=== PATIENT | female | born 1965 ===

== ENCOUNTER 2023-03-25 11:31 | Outpatient (REF) | payer MEDICAID, SELFPAY | END 2023-03-25 11:32 | disposition home or self-care (01) | LOC: HO.HHCLNP 11:31 | PROVIDERS: Visit Provider Emergency Medicine | DX: K21.9 Gastro-esophageal reflux disease without esophagitis (principal) | CPT/HCPCS: 87338 ==

== ENCOUNTER 2023-05-14 10:40 | Outpatient (REF) | payer MEDICAID, SELFPAY ==
--- NOTE | ~2023-05-14 | XR_ITS ---
EXAMINATION: XR WRIST, LEFT CLINICAL INFORMATION: Left wrist pain radial. Patient states she has had pain for 2 years. COMPARISON: None available. TECHNIQUE: 5 views of the left wrist. FINDINGS: Advanced, destructive changes at the 1st carpometacarpal joint with joint space loss, abundant hypertrophic change and sclerosis with possible destructive ossific fragmentation. There is lateral subluxation of the 1st metacarpal. Moderate degenerative changes with spurring along the distal aspect of the trapezium. XR/XR wrist LT min 3V IMPRESSION: Severe, destructive changes at the 1st carpometacarpal joint as detailed above. Correlation with clinical exam recommended to determine further management. Orthopedic consultation and possible CT scan or MRI recommended for further evaluation.
[2023-05-14 14:16] LABS: TSH reflex Free T4 1.82 uIU/mL (0.32-4.0)
[2023-05-14 14:25] LABS: Anion Gap 13 (12-20)
[2023-05-14 14:30] LABS: Alanine Aminotransferase 17 U/L (0-31); Albumin Level 4.7 g/dL (3.5-5.0); Alkaline Phosphatase 102 U/L (39-117); Aspartate Amino Transferase 21 U/L (5-31); Bilirubin Total 0.5 mg/dL (0.0-1.0); Blood Urea Nitrogen 14 mg/dL (9-16); Calcium 10.2 mg/dL (8.4-10.2); Carbon Dioxide 25 mmol/L (22-29); Chloride 103 mmol/L (96-108); Estimated Glomerular Filt Rate > 60; Glucose Random 89 mg/dL (60-115); Potassium 4.1 mmol/L (3.3-5.1); Sodium 137 mmol/L (135-145); Total Protein 7.9 g/dL (6.5-8.0)
[2023-05-14 14:35] LABS: Cholesterol 245 mg/dL (<200); HDL Cholesterol 49 mg/dL (>40); LDL Cholesterol Calculated 155 mg/dL (<100); Triglycerides 208 mg/dL (<150)
[2023-05-14 14:39] LABS: Estimated Average Glucose 105 mg/dL; Hemoglobin A1c % 5.3 % (<6.0)
[2023-05-14 14:50] LABS: Reflex LDLD? No
[2023-05-15 07:38] LABS: Syphilis Screen Nonreactive (Nonreactive)
[2023-05-15 08:18] LABS: HBS Num1 0.47 mIU/mL (0-7.99); HBc Num1 0.08 S/CO (0.00-0.79); HBsAGNum1 0.34 S/CO (0.00-0.99); HIV AB/AG Nonreactive (Nonreactive); HIV Num 1 0.13 S/CO (0.00-0.99); Hepatitis B Core Antibody Nonreactive (Nonreactive); Hepatitis B Surface Antigen Negative (Negative); ~HepC Num1 11.99 S/CO (0.00-0.79); ~Hepatitis B Surface Antibody NONREACTIVE (Nonreactive); ~Hepatitis C Antibody Reactive (Nonreactive)
[2023-05-18 17:13] LABS: HCV Log PCR <1.18 NOT DETECTED Log IU/mL (NOT DETECTED); HepC Viral Load <15 NOT DETECTED IU/mL (NOT DETECTED)
== END 2023-05-14 10:41 | disposition home or self-care (01) ==
LOC: HO.HHCL 10:40
PROVIDERS: Visit Provider Family Medicine
DX: Z00.00 Encounter for general adult medical examination without abnormal findings (principal); E03.9 Hypothyroidism, unspecified; I10 Essential (primary) hypertension
CPT/HCPCS: 36415; 73110; 80053; 80061; 83036; 84443; 86704; 86706; 86780; 86803; 87340; 87389; 87522

== ENCOUNTER 2023-05-22 11:15 | Outpatient (REF) | payer MEDICAID, SELFPAY ==
--- NOTE | ~2023-05-22 | MM_ITS ---
EXAMINATION: MM SCREENING DIGITAL BREAST TOMOSYNTHESIS, BILATERAL CLINICAL INFORMATION: Screening. Asymptomatic. COMPARISON: Mammography: There are no prior studies for comparison. This is a baseline mammogram. TECHNIQUE: Digital breast tomosynthesis is performed in both the craniocaudal and mediolateral oblique views along with computer-aided detection (CAD). Synthesized 2D images are generated from the tomosynthesis. FINDINGS: There are scattered areas of fibroglandular density (ACR BI-RADS breast composition Category b). There are no significant masses, abnormal calcifications, or other abnormalities. MM/MM tomosynthesis screening BI IMPRESSION: No mammographic evidence of malignancy. ASSESSMENT: BI-RADS BI-RADS 1 - Negative RECOMMENDATION: Routine annual mammography screening. 1 year F/U This examination should not preclude the clinical evaluation of a suspicious palpable abnormality. This patient's information was entered into a reminder system with a target due date for their next mammogram.
== END 2023-05-22 11:16 | disposition home or self-care (01) ==
LOC: HO.MAMMO 11:15
PROVIDERS: PCP Family Medicine; Visit Provider Family Medicine
DX: Z12.31 Encounter for screening mammogram for malignant neoplasm of breast (principal)
CPT/HCPCS: 77063; 77067

== ENCOUNTER → 2023-05-22 12:45 | Outpatient (BNV) | payer MEDICAID, SELFPAY | PROVIDERS: PCP Family Medicine; Visit Provider Radiology Diagnostic Radiology | DX: Z12.31 Encounter for screening mammogram for malignant neoplasm of breast (principal) | CPT/HCPCS: 77063; 77067 ==

== ENCOUNTER 2023-07-03 11:00 | Outpatient (RCR) | payer MEDICAID, SELFPAY | END 2023-08-03 07:28 | disposition home or self-care (01) | LOC: HO.PT 11:00 | PROVIDERS: PCP Family Medicine; Visit Provider Family Medicine | DX: M54.2 Cervicalgia (principal); M79.605 Pain in left leg; M25.552 Pain in left hip; G89.29 Other chronic pain | CPT/HCPCS: 97110; 97140; 97162; 97530 ==

== ENCOUNTER 2023-08-28 09:12 | Outpatient (REF) | payer MEDICAID, SELFPAY ==
--- NOTE | ~2023-08-28 | US_ITS ---
EXAMINATION: US ABDOMEN COMPLETE CLINICAL INFORMATION: Hepatic lesions on ultrasound in October 2022. COMPARISON: None available. TECHNIQUE: Real-time imaging of the abdominal viscera. FINDINGS: PANCREAS: Mostly obscured. ABDOMINAL AORTA: Atherosclerosis. INFERIOR VENA CAVA: Visualized portions are normal. LIVER: The liver is normal in size. The liver contour is normal. There is diffuse increased liver parenchymal echogenicity, consistent with hepatic steatosis. No focal hepatic lesion. There is no intrahepatic biliary duct dilatation seen. GALLBLADDER: Surgically absent. COMMON BILE DUCT: Normal in caliber measuring 0.5 cm in diameter. RIGHT KIDNEY: No hydronephrosis. No renal calculi or focal parenchymal lesions. The kidney measures 10.1 cm in maximum dimension. LEFT KIDNEY: No hydronephrosis or focal parenchymal lesions. The kidney measures 9.9 cm in maximum dimension. Nonshadowing curvilinear echogenic foci in the lower pole possibly vascular in etiology. SPLEEN: The spleen measures 9.2 cm in maximum dimension. FREE FLUID: None. US/US abdomen complete IMPRESSION: Hepatic steatosis.
== END 2023-08-28 09:13 | disposition home or self-care (01) ==
LOC: HO.US 09:12
PROVIDERS: PCP Family Medicine; Visit Provider Family Medicine
DX: K76.9 Liver disease, unspecified (principal); R76.8 Other specified abnormal immunological findings in serum
CPT/HCPCS: 76700

== ENCOUNTER 2023-09-22 16:37 | Outpatient (REF) | payer MEDICAID, SELFPAY | END 2023-09-22 16:38 | disposition home or self-care (01) | LOC: HO.HHCLNP 16:37 | PROVIDERS: Visit Provider Family Medicine | DX: R30.0 Dysuria (principal) | CPT/HCPCS: 87086 ==

== ENCOUNTER 2023-09-22 17:47 | Outpatient (REF) | payer MEDICAID, SELFPAY ==
--- NOTE | ~2023-09-22 | MR_ITS ---
EXAMINATION: MR WRIST WITHOUT CONTRAST, LEFT CLINICAL INFORMATION: Chronic left wrist pain and decreased range of motion following an injury over 10 years ago. Pain, swelling, numbness. COMPARISON: Left wrist radiographs dated 05/14/2023. TECHNIQUE: Multisequence MR imaging of the left wrist was obtained without contrast on a high-field strength scanner. FINDINGS: TRIANGULAR FIBROCARTILAGE: Heterogeneous degenerative intrasubstance signal without a measurable full-thickness tear. INTRINSIC LIGAMENTS: Intact. TENDONS/MEDIAN NERVE: Trace edema within the extensor carpi ulnaris tendon sheath, consistent with minimal tenosynovitis. No transverse tendon tear or tendon retraction. ARTICULAR CARTILAGE/BONE: Diffuse, full-thickness articular cartilage loss at the first carpal metacarpal joint with prominent bony remodeling and marginal osteophytes. Prominent degenerative cystic change extending into the base of the first metacarpal distally beyond the imaged field of view. There are multiple ossified loose bodies measuring up to 0.6 cm medially and 1.0 cm anterolaterally. Moderate joint effusion with synovitis. More [id number] osteoarthritis at the triscaphe joint. No acute fracture or dislocation. No concerning lytic or blastic osseous lesion. JOINT FLUID/SOFT TISSUES: Moderate first carpometacarpal joint effusion with synovitis. Trace distal radioulnar joint effusion. Synovial recess versus ganglion cyst volar to the ulnar styloid measuring up to 1.1 cm. MR/MR wrist LT wo con IMPRESSION: 1. Severe osteoarthritis at the first carpometacarpal joint with prominent bony remodeling and prominent degenerative cystic change extending into the base of the first metacarpal. Multiple ossified loose bodies measuring up to 1.0 cm. Moderate joint effusion with synovitis. More teec-pu-twpomrlh osteoarthritis at the triscaphe joint. 2. Degenerative intrasubstance signal within the triangular fibrocartilage complex without a measurable full-thickness tear. Trace distal radial ulnar joint effusion. 3. Minimal extensor carpi ulnaris tenosynovitis. No transverse tendon tear or tendon retraction. 4. Synovial recess versus ganglion cyst volar to the ulnar styloid measuring up to 1.1 cm.
== END 2023-09-22 17:48 | disposition home or self-care (01) ==
LOC: HO.MRI 17:47
PROVIDERS: PCP Family Medicine; Visit Provider Family Medicine
DX: M25.532 Pain in left wrist (principal)
CPT/HCPCS: 73221; 87086

== ENCOUNTER 2023-09-28 13:20 | Outpatient (AMB) | payer MEDICAID, SELFPAY ==
[2023-09-28 13:29] VITALS: BMI 23.3
--- NOTE | 2023-09-28 13:29 | A.OFFVIS_ITS ---
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 Patient reports her pain has been present for about 3 years after a fall in [place]. Her pain is located at her CMC and will radiate down her forearm as well as numbness and tingling. 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 MRI was obtained by her PCP. No other tx. 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 She states she has pain at her CMC which radiates down to her forearm. She finds difficulty making fist or gripping objects and frequently drop items. She also c/o numbness and tingling in her wrist. She was seen by her PCP who ordered an MRI of her left wrist. She has not had any previous treatment. She does not have a history of diabetes. PFSH Surgical History (Updated 09/28/23 @ 13:39 by CHERRI Yen) Hx of cholecystectomy Social History (Updated 09/28/23 @ 13:38 by CHERRI Yen) Patient Tobacco Use Status: Current everyday Tobacco user Current occupational status: unemployed Current occupation: right hand dominant Review of Systems Const All systems reviewed & are unremarkable except as noted in HPI and below Physical Exam Vital Signs: BMI result Body Mass Index 23.3 Const General: cooperative, healthy appearing, comfortable, no acute distress, well developed and alert Orientation/consciousness: patient oriented x3 HEENT Head: Yes normal to inspection, Yes normocephalic and Yes atraumatic Eyes General: appearance normal, both eyes and all related structures Resp Effort & Inspection: normal respiratory effort and able to speak in complete sentences Cardio Rate: regular rate Peripheral pulses: Peripheral pulses 2+ throughout GI Palpation (GI): Soft to palpation Skin Lesions: no lesions Rashes: no rashes Neuro General: patient oriented x3 Extrem Other: Left thumb: Pain at the base of the thumb along the CMC joint. Pain with CMC grind, they are able to make a full fist and fully extend. NVI. Left wrist: Normal to inspection. Tenderness over the carpal canal. Numbness and tingling over the median nerve distribution of the right hand. Able to make a full fist and fully extend all fingers. Positive Tinel's. Results Reviewed Results Reviewed: XR wrist LT min 3V 05/14/23 IMPRESSION: Severe, destructive changes at the 1st carpometacarpal joint as detailed above. Correlation with clinical exam recommended to determine further management. Orthopedic consultation and possible CT scan or MRI recommended for further evaluation. MR wrist LT wo con 09/22/23 IMPRESSION: 1. Severe osteoarthritis at the first carpometacarpal joint with prominent bony remodeling and prominent degenerative cystic change extending into the base of the first metacarpal. Multiple ossified loose bodies measuring up to 1.0 cm. Moderate joint effusion with synovitis. More iigb-eo-brnsjlod osteoarthritis at the triscaphe joint. 2. Degenerative intrasubstance signal within the triangular fibrocartilage complex without a measurable full-thickness tear. Trace distal radial ulnar joint effusion. 3. Minimal extensor carpi ulnaris tenosynovitis. No transverse tendon tear or tendon retraction. 4. Synovial recess versus ganglion cyst volar to the ulnar styloid measuring up to 1.1 cm. Assessment & Plan Assessment & Plan (1) Arthritis of carpometacarpal (CMC) joint of left thumb: Code(s): M18.12 - Unilateral primary osteoarthritis of first carpometacarpal joint, left hand Plan We discussed options today which included bracing, OT and steroid injection. They did consent to move forward with the left thumb injection, which was tolerated well. I recommended rest, ice and elevation and OTC anti- inflammatories PRN for discomfort. A nerve conduction study of the LUE was also ordered to further evaluate the etiology of her numbness. If symptoms persist or worsens over the next 6-8 weeks, patient will contact the office, otherwise follow-up once the study is complete. Orders: Orders NE nerve conduction velocity Today R20.0 - Anesthesia of skin, R20.2 - Paresthesia of skin NE electromyogram (EMG) Today R20.0 - Anesthesia of skin, R20.2 - Paresthesia of skin Patient Instructions: Scribed for Shannan Teran PA-C, by Sim Abhang, medical charge entry specialist, on 09/28/2023 at 1:45 PM MEKA. Shannan White PA-C, have personally reviewed and agree with mirella walsh information entered by the scribe. Coding Level of Care Code New Pt Level 3 (15873) Diagnoses Arthritis of carpometacarpal (CMC) joint of left thumb M18.12
== END 2023-09-28 15:02 | disposition home or self-care (01) ==
PROVIDERS: PCP Family Medicine; Visit Provider Physician Assistant
DX: M18.12 Unilateral primary osteoarthritis of first carpometacarpal joint, left hand (principal)
CPT/HCPCS: 99203

== ENCOUNTER → 2023-09-28 13:20 | Outpatient (BNVA) | payer MEDICAID, SELFPAY | PROVIDERS: PCP Family Medicine; Visit Provider Physician Assistant | DX: M18.12 Unilateral primary osteoarthritis of first carpometacarpal joint, left hand (principal) | CPT/HCPCS: 99212; J1020 ==

== ENCOUNTER 2023-10-28 13:07 | Outpatient (REF) | payer MEDICAID, SELFPAY ==
--- NOTE | 2023-10-28 13:11 | EMG_ITS ---
Chief complaint: Left hand pain and numbness Reason for referral: Evaluate for Carpal Tunnel Syndrome Referred by: Shannan HACKETT Procedure done: Left upper extremity NCS/EMG Precautions and/or limitations: None Slovenian speaking, seen with microbial specialist. The limb temperature was monitored continuously and remained between 32-36 degrees C during the performance of the NCS. Nerve Conduction Studies Anti Sensory Summary Table ?Stim Site NR Onset (ms) Norm Onset (ms) Peak (ms) Norm Peak (ms) O-P Amp (?V) Norm O-P Amp Site1 Site2 Delta-0 (ms) Dist (cm) Joshua (m/s) Norm Joshua (m/s) Left Median Anti Sensory (2nd Digit) Wrist ? 2.6 3.8 <3.6 8.6 >10 Wrist 2nd Digit 2.6 14.0 54 Left Ulnar Anti Sensory (5th Digit) Wrist ? 2.6 3.2 <3.7 17.6 >15.0 Wrist 5th Digit 2.6 14.0 54 Motor Summary Table ?Stim Site NR Onset (ms) Norm Onset (ms) O-P Amp (mV) Norm O-P Amp iAmp (mV) Amp (1st) (%) Site1 Site2 Delta-0 (ms) Dist (cm) Joshua (m/s) Norm Joshua (m/s) Left Median Motor (Abd Poll Brev) Wrist ? 3.6 <3.9 9.1 >4.5 10.1 100.0 Elbow Wrist 4.1 20.0 49 >45 Elbow ? 7.7 8.1 9.0 89.0 Left Ulnar Motor (Abd Dig Minimi) Wrist ? 2.7 <3.0 11.1 >5 12.6 100.0 B Elbow Wrist 3.2 18.5 58 >45 B Elbow ? 5.9 10.1 11.6 91.0 A Elbow B Elbow 1.5 10.0 67 >45 A Elbow ? 7.4 10.5 12.0 94.6 Comparison Summary Table ?Stim Site NR Peak (ms) Norm Peak (ms) P-T Amp (?V) Site1 Site2 Delta-P (ms) Norm Delta (ms) Left Median/Radial Dig I Comparison (Digit 1 - 10cm) Median ? 3.2 <2.9 27.9 Median Radial 0.7 Radial ? 2.5 <2.8 8.2 EMG ?Side Muscle Nerve Root Ins Act Fibs Psw Amp Dur Poly Recrt Int Pat Comment Left 1stDorInt Ulnar C8-T1 Nml Nml Nml Nml Nml 0 Nml Complete Left FlexCarRad Median C6-7 Nml Nml Nml Nml Nml 0 Nml Complete Left Biceps Musculocut C5-6 Nml Nml Nml Nml Nml 0 Nml Complete Left Triceps Radial C6-7-8 Nml Nml Nml Nml Nml 0 Nml Complete Left Deltoid Axillary C5-6 Nml Nml Nml Nml Nml 0 Nml Complete FINDINGS: Left median sensory nerve showed prolonged peak latency. Significant interlatency difference seen in left median and radial sensory nerves. All other nerves tested were within normal. Concentric needle EMG was performed in selected muscles of the left upper extremity. Study did not reveal signs of electric abnormalities as shown in the table below. IMPRESSION: 1. This is an abnormal study. 2. There is electrodiagnostic evidence for left mild median neuropathy at the wrist, consistent with carpal tunnel syndrome. 3. There is no electrodiagnostic evidence for ulnar neuropathy, brachial plexopathy, or cervical radiculopathy.] Thank you for your kind referral. Grace Lebron MD, BRIAN Board Certified, [place] Board [employer] and Rehabilitation (ABPMR) Board Certified, [place] Board of Electrodiagnostic Medicine (ABEM) [place] [id number] [facility]
== END 2023-10-28 13:08 | disposition home or self-care (01) ==
LOC: HO.NEURO 13:07
PROVIDERS: PCP Family Medicine; Visit Provider Physician Assistant
DX: R20.0 Anesthesia of skin (principal); R20.2 Paresthesia of skin
CPT/HCPCS: 95886; 95909

== ENCOUNTER → 2023-10-28 13:11 | Outpatient (BNV) | payer MEDICAID, SELFPAY | PROVIDERS: PCP Family Medicine; Visit Provider Physical Medicine & Rehabilitation | DX: G56.03 Carpal tunnel syndrome, bilateral upper limbs (principal); G56.12 Other lesions of median nerve, left upper limb | CPT/HCPCS: 95886; 95909 ==

== ENCOUNTER 2023-11-17 09:40 | Outpatient (AMB) | payer MEDICAID, SELFPAY ==
--- NOTE | 2023-11-17 10:16 | A.OFFVIS_ITS ---
Vital Signs 11/17/23 10:21 Height 5 ft 5 in Weight 140 lb BMI 23.3 Handedness Right Intake Visit Reasons: ov- discuss emg results Intake Note: Nilda is a 58 year old right hand dominant female who presents today for an EMG review of her left hand, due to complaints of left hand pain numbness and tingling. EMG was completed on 10/28/23. Patient would like to discuss surgical and non surgical treatments, if surgical treatment is necessary she would like to hold off until she returns from [place]. Allergies No Known Allergies Allergy (Verified 11/17/23 10:18) HPI HPI ov- discuss emg results: Details: Nilda is a 58 year old right hand dominant Belarusian speaking woman who presents for a NCS review of her left hand numbness. She was last seen by LEW Campbell on 09/28/23 and received a basal joint injection. She complains of numbness in the left thumb, index, and middle fingers. Symptoms intermittent, but daily, worse at night. She is seen today wearing a wrist brace. She is planning to move here from [place] soon, and does not want to consider surgery until she has returned sometime this summer. PFSH Surgical History Hx of cholecystectomy Social History Patient Tobacco Use Status: Current everyday Tobacco user Current occupational status: unemployed Current occupation: right hand dominant Review of Systems Const All systems reviewed & are unremarkable except as noted in HPI and below Physical Exam Vital Signs: BMI result Body Mass Index 23.3 Const General: cooperative, healthy appearing and no acute distress Orientation/consciousness: patient oriented x3 HEENT Head: Yes normocephalic and Yes atraumatic Eyes EOM: EOMs intact bilaterally Resp Effort & Inspection: normal respiratory effort and able to speak in complete sentences Cardio Jugular venous distension: no JVD Skin General skin exam: turgor normal Rashes: no rashes Neuro General: patient oriented x3 Extrem Other: Evaluation of Left Upper Extremity: The patient is alert, oriented, and in no acute distress Neuro: Median, Ulnar, Radial nerves motor and sensory intact and sensation is normal to the tips of all digits No thenar or intrinsic wasting Good APB muscle belly firing and good finger cross Vascular: Cap refill brisk ROM: She can make a fist and extend all her digits Skin: No lacerations or abrasions. General: No Ecchymosis. No Erythema or evidence of infection. Radiographs: Left Nerve Conduction Study: IMPRESSION: 1. This is an abnormal study. 2. There is electrodiagnostic evidence for left mild median neuropathy at the wrist, consistent with carpal tunnel syndrome. 3. There is no electrodiagnostic evidence for ulnar neuropathy, brachial plexopathy, or cervical radiculopathy.] Thank you for your kind referral. Grace Lebron MD, BRIAN 10/28/23 Psych Appearance: grossly normal Affect: normal affect Attitude: cooperative Assessment & Plan Assessment & Plan (1) Carpal tunnel syndrome of left wrist: Code(s): G56.02 - Carpal tunnel syndrome, left upper limb Category: Medical (2) Arthritis of carpometacarpal (CMC) joint of left thumb: Code(s): M18.12 - Unilateral primary osteoarthritis of first carpometacarpal joint, left hand Category: Medical Plan Assessment & Plan: 1. Left carpal tunnel syndrome, mild Symptoms intermittent, but daily, worse at night I educated her about this condition I discussed operative and non-operative treatment options The patient would like to proceed with surgery, when she returns from [place] I explained that she should discontinue her wrist splint during the day, and wear it during the night only The risks and benefits of operative treatment were discussed with the patient and the patient wishes to proceed with surgery. These risks include, but are not limited to risk of damage to blood vessels, nerves, tendons, infection, recurrence, incomplete relief of preoperative symptoms, persistent pain, possible need for further surgery and the risks associated with regional blocks and anesthesia. The plan is to take the patient to the operating room sometime in the next few months for the following procedures: 1. Left carpal tunnel release, under local All of the preoperative paperwork including the consent was reviewed today. All the patient's questions were answered. The patient understands that they will be contacted by our plastic surgery assistant soon to schedule this procedure. She is travelling to and from [place] over the next few months. She would like to have surgery no sooner than mid-January. She denies Diabetes, blood thinners, asthma, heart, lung, kidney issues 2. Left Basal joint arthritis, S/P injection Date of injection: 09/28/23 by Shannan I educated her about this condition This appears to have helped. I discussed activity modification, she should limit or avoid any heavy or repetitive pinching or gripping activities She can repeat her injection no sooner than 01/28/24. Scribed for Marleny Wolff MD by Evan Castillo, medical secretary receptionist, on 11/17/23 at 10:45 AM, EST. Coding Level of Care Code Est Pt Level 4 (07561) Diagnoses Carpal tunnel syndrome of left wrist G56.02 Arthritis of carpometacarpal (CMC) joint of left thumb M18.12
[2023-11-17 10:21] VITALS: BMI 23.3
== END 2023-11-17 11:00 | disposition home or self-care (01) ==
PROVIDERS: PCP Family Medicine; Visit Provider Orthopaedic Surgery
DX: G56.02 Carpal tunnel syndrome, left upper limb (principal); M18.12 Unilateral primary osteoarthritis of first carpometacarpal joint, left hand
CPT/HCPCS: 99214

== ENCOUNTER → 2023-11-17 09:40 | Outpatient (BNVA) | payer MEDICAID, SELFPAY | PROVIDERS: PCP Family Medicine; Visit Provider Orthopaedic Surgery | DX: G56.02 Carpal tunnel syndrome, left upper limb (principal); M18.12 Unilateral primary osteoarthritis of first carpometacarpal joint, left hand | CPT/HCPCS: 99212 ==

== ENCOUNTER 2024-02-29 10:18 | Day surgery (SDC) | payer MEDICAID, SELFPAY ==
[2024-02-29 11:20] VITALS: BP 138/79; PULSE 52; RESP 16; TEMP 36.1; O2SAT 99; BMI 24.5
--- NOTE | 2024-02-29 12:47 | P.OP_ITS ---
Operative Note Operative Note Date of Service: 02/29/24 Narrative: Preop diagnosis: 1. Left Carpal tunnel syndrome Postop diagnosis: same Procedure: 1. Left Carpal tunnel release Surgeon: Marleny Wolff MD Research Methods Instructor: None Anesthesia: local block using 1% lidocaine with epinephrine Findings: Thickened transverse carpal ligament. EBL: Less than 5 mL Specimens: None Complications: None Disposition: Brought to recovery room in stable condition Plan: Follow-up for 10-14 days for wound check and suture removal Indications: The patient is 58 years old, with left carpal tunnel syndrome that has been unresponsive to nonoperative management. The risks and benefits of operative treatment including but not limited to risk of damage to blood vessels, nerves, tendons, infection, persistent pain, persistent symptoms, or possible need for additional surgery were discussed with the patient and the patient wishes to proceed with surgery. Procedure: Once consent was obtained a local block was performed using a combination of 1% lidocaine with epinephrine. The patient was then brought back to the operating suite and placed on the operative table in supine position. The left upper extremity was prepped and draped in a standard surgical fashion. Once assured that we had a good block, a 2.0 cm longitudinal incision was made centered over the carpal tunnel. The incision was made through the skin to the subcutaneous tissues using a #15 blade. Dissection was made down to the level of the transverse carpal ligament with care being taken to protect the palmar cutaneous nerve. Once the transverse carpal ligament was clearly visualized, a longitudinal incision was made in the transverse carpal ligament 1st using a #15 blade, then using tenotomy scissors under direct visualization. Care was taken to look for and protect the motor branch of the median nerve when seen in this area. Once satisfied with our carpal tunnel release the wound was copiously irrigated with normal saline and hemostasis was obtained with a brief period of local pressure. The skin edges were reapproximated with some 5.0 nylon suture material and a sterile dressing was applied. The patient appears to have tolerated the procedure well and with no complicatio ns. All digits were well vascularized at the conclusion of the case.
--- NOTE | 2024-02-29 12:47 | MHC.SHP ---
Pre-Procedural Eval Section A - 24 Hr Update-Section A only Date of Service: 02/29/24 The patient is an INPATIENT: No Changes since office visit: No Cold of Flu in the past 2 weeks, No New Medical Problems, No Changes in Medication and No Patient answered all questions The patient has been examined within 24 hours of the surgical procedure. The History & Physical has been completed within 30 days and I have reviewed it.: Yes Section B - Complete if H&P > 30 days Chief Complaint: Carpal tunnel syndrome, left upper limb Allergies: Allergies Allergy/AdvReac Type Severity Reaction Status Date / Time No Known Allergies Allergy Verified 11/17/23 10:18 Exam Exam Comment: Left carpal tunnel syndrome Plan Diagnosis/Plan: Unchanged I have reviewed the history and physical and performed a pertinent physical examination on my patient. No changes have occurred unless specified. Time Spent With Patient Time: Total time managing care of this patient today ____ minutes.
[2024-02-29 14:28] VITALS: BP 132/76; PULSE 57; RESP 16; O2SAT 99
== END 2024-02-29 14:29 | disposition home or self-care (01) ==
PROVIDERS: PCP Family Medicine; Visit Provider Orthopaedic Surgery
PROC: (CPT 64721; principal; 2024-02-29 12:10)
DX: G56.02 Carpal tunnel syndrome, left upper limb (principal); M18.12 Unilateral primary osteoarthritis of first carpometacarpal joint, left hand; R20.0 Anesthesia of skin; R20.2 Paresthesia of skin; Z90.49 Acquired absence of other specified parts of digestive tract; F17.210 Nicotine dependence, cigarettes, uncomplicated; Z56.0 Unemployment, unspecified
CPT/HCPCS: 64721; J0171

== ENCOUNTER → 2024-02-29 10:18 | Outpatient (BNV) | payer MEDICAID, SELFPAY | PROVIDERS: PCP Family Medicine; Visit Provider Orthopaedic Surgery | DX: G56.02 Carpal tunnel syndrome, left upper limb (principal) | CPT/HCPCS: 64721 ==

== ENCOUNTER 2024-03-15 11:08 | Outpatient (AMB) | payer MEDICAID, SELFPAY ==
--- NOTE | 2024-03-15 11:19 | A.OFFVIS_ITS ---
Intake Visit Reasons: PO LT CTR 02/29/24 AR Intake Note: Nilda is a 58 yo right hand dominant female who presents today post- operatively s/p left CTR done 02/29/[address] Wolff. Patient reports she is doing well, she continues to have numbness and tingling around her incision. Stitches removed in office and steri strips applied. Allergies No Known Allergies Allergy (Verified 03/15/24 13:25) HPI HPI PO LT CTR 02/29/24 AR: Details: Patient is a 58-year-old female who presents for postoperative evaluation of left carpal tunnel release, DOS 02/29/2024. Patient reports she is doing well, and is not experiencing any numbness in the digits of the left hand at this time. However, the patient reports that she is experiencing some discomfort around the incision site. No edema, increasing erythema, drainage from the incision site noted. No other acute complaints or concerns at this time. PFSH Surgical History Hx of cholecystectomy Social History Patient Tobacco Use Status: Current everyday Tobacco user Current occupational status: unemployed Current occupation: right hand dominant Physical Exam Extrem Other: Patient is alert, oriented, and in no acute distress. Neuro: Normal sensation to all digits of the left hand at this time Vascular: Cap refill brisk Pain: Patient reports tenderness to palpation about the incision site of the volar left wrist No other tenderness to palpation or pain with range of motion noted ROM: Patient is able to make a closed fist without difficulty Skin: Well-healing incision site on the volar aspect of the left wrist No active drainage or evidence of infection at this time. General: No ecchymosis, erythema, or evidence of infection. Psych: Appears grossly normal Affect normal Attitude cooperative Assessment & Plan Assessment & Plan (1) Carpal tunnel syndrome of left wrist: Code(s): G56.02 - Carpal tunnel syndrome, left upper limb Category: Medical Plan 1. Left carpal tunnel syndrome status post carpal tunnel release DOS 02/29/2024 Patient is recovering well postoperatively Patient is educated about the typical recovery course Patient is encouraged to continue with [id number] exercises of the left lorenz d in order to prevent stiffness Patient is also educated that she should massage around the incision site in order to prevent the hypersensitivity reaction Patient is amenable to this plan No scheduled follow-up necessary, patient will follow-up p.r.n. with any acute concerns Coding Level of Care Code Global (86211) Diagnoses Carpal tunnel syndrome of left wrist G56.02
== END 2024-03-15 11:47 | disposition home or self-care (01) ==
PROVIDERS: PCP Family Medicine
DX: G56.02 Carpal tunnel syndrome, left upper limb (principal)
CPT/HCPCS: 99024

== ENCOUNTER → 2024-03-15 11:08 | Outpatient (BNVA) | payer MEDICAID, SELFPAY | PROVIDERS: PCP Family Medicine | DX: Z48.811 Encounter for surgical aftercare following surgery on the nervous system (principal) | CPT/HCPCS: 99212 ==

== ENCOUNTER 2024-07-13 14:59 | Outpatient (REF) | payer MEDICAID, SELFPAY ==
--- OUTSIDE RECORDS SUMMARY | 2024-07-13 15:37 | XMS_ITS | Continuity of Care Document ---
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 Name Role Phone Unavailable Unavailable Unavailable Allergies, Adverse Reactions, Alerts Substance Reaction Status Criticality No Known Allergies Active No Inform ation Medications Medication Instructions Dosage Effective Dates (start - stop) Status Comments levothyroxine 75 mcg tablet take 1 tablet by oral route every day 75 MCG - Active Palauan translation, please Tirosint 75 mcg capsule take 1 capsule by oral route every day 75 MCG - Active tizanidine 4 mg tablet take 1 tablet by oral route every 8 hours as needed not to exceed 3 doses in 24 hours - Active Palauan translation, please Zantac 300 mg tablet take 1 tablet by oral route every day at bedtime - Active Palauan translation, please Percocet 5 mg-325 mg tablet take 1 tablet by oral route every 6 hours as needed 1.00 tablet - Active Palauan translation, please diclofenac sodium 75 mg tablet,delayed release take 1 tablet by oral route 2 times every day 75 MG - Active Palauan translation, please betamethasone valerate 0.1 % topical cream apply by topical route every day a thin layer to the affected area(s) 0.00 - Active Palauan translation, please Fioricet 50 mg-300 mg-40 mg capsule take 1 - 2 capsule by oral route every 4 hours as needed not to exceed 6 capsules per 24hrs 1.00-2.00 capsule - Active Palauan translation, please dicyclomine 20 mg tablet take 1 tablet by oral route 4 times every day 20 MG - Active Palauan translation, please enalapril maleate 20 mg tablet take 1 tablet by oral route 2 times every day 20 MG - Active Palauan translation, please fluoxetine 40 mg capsule take 1 capsule by oral route every day in the morning 40 MG - Active omeprazole 40 mg capsule,delayed release take 1 capsule by oral route every day before a meal 40 MG - Active Palauan translation, please Zofran ODT 4 mg disintegrating tablet take 1 tablet by oral route every [address] on top of the tongue where they will dissolve, then swallow 4 MG - Active Wrist Support One Size use on both wrists for support - Active 1 left hand; 1 right hand Procedures Procedure Date OFFICE/OUTPATIENT VISIT, EST OFFICE/OUTPATIENT VISIT, EST OFFICE/OUTPATIENT VISIT, EST OFFICE/OUTPATIENT VISIT, EST OFFICE/OUTPATIENT VISIT, EST PsyTXPT And Family 30 Minutes 5 GROUP PSYCHOTHERAPY OFFICE/OUTPATIENT VISIT, EST GROUP PSYCHOTHERAPY GROUP PSYCHOTHERAPY PsyTXPT And Family 30 Minutes 5 GROUP PSYCHOTHERAPY Bitewings-Two Films Intraoral-Periapical First Film 015 Intraoral-Periapical Each Additional Artemio m Intraoral-Periapical Each Additional Artemio m Treatment Plan Not Started OFFICE/OUTPATIENT VISIT, EST GROUP PSYCHOTHERAPY OFFICE/OUTPATIENT VISIT, EST OFFICE/OUTPATIENT VISIT, EST OFFICE/OUTPATIENT VISIT, EST PsyTXPT And Family 30 Minutes 5 IMMUNIZATION ADMIN FLU VACCINE, 3 YRS & >, IM OFFICE/OUTPATIENT VISIT, EST OFFICE/OUTPATIENT VISIT, EST [facility]TXPT And Family 30 Minutes 5 Psych Diag Eval W/Med Serv OFFICE/OUTPATIENT VISIT, EST Psych Dx Eval Advance Directives Directive Yes / No Effective Date File Name No Information Encounters Encounter Description Practice Location Reason(s) For Visit Diagnoses Date Provider Providers Copied on Encounter [facility], [address] [place] [address], [id number], [place] tel:[phone] [facility] Adult Medicine No Information 6 No Information OFFICE[place]PATI [place], [facility] [place] [address] [place] [address], [id number], [place] tel:[phone] [facility] Adult Medicine Med Refills (chief complaint) 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 6 No Information OFFICE[place]PATI [place] [facility] [place] [address] [place] [address], [id number], [place] tel:[phone] [facility] Adult Medicine paperwork, hand pain, back pain (chief complaint) Routine adult health maintenance iatal herniaCarpal tunnel syndrome, bilateralCar pal tunnel syndrome, left upper limb 6 No Information [facility], [address] [place] [address], [id number], [place] tel:[phone] [facility] Behavioral Health Cannabis use, unspecified, uncomplicate dDepression 6 No Information OFFICE/[place]PATI [place], [facility] [place] [address] [place] [address], [id number], [place] tel:[phone] [facility] Adult Medicine Follow Up of hand pain (chief complaint) Body mass index (BMI) 27.0-27.9, adultBilater al hand painPain in left handMedicati on refill 5 No Information OFFICE[place]PATI [place], [facility] [place] [address] [place] [address], [address], [place] tel:[phone] [facility] Adult Medicine ER F/U (chief complaint) Body mass index (BMI) 28.0-28.9, adultEpigast kamryn painNeck pain 5 No Information OFFICE/OUTPATI E[place]ISIT, [facility] [place] [address] [place] [address], [id number], [place] tel:[phone] [facility] Adult Medicine bilateral hand pain (chief complaint) Bilateral hand painSwelling of both hands 5 No Information [facility] Family 30 Minutes [facility], [address] [place], [address], [place] tel:[phone] [facility] Behavioral Health depression (chief complaint) Cannabis use, unspecified, uncomplicate dDepression May-2 5 No Information GROUP PSYCHOTHERAPY [facility], [address] [place], [address], [place] tel:[phone] [facility] Behavioral Health Cannabis use, unspecified, uncomplicate dDepression 5 No Information OFFICE/OUTPATI ENT VISIT, [facility] [place] [address] [place], [address], [place] tel:[phone] [facility] Behavioral Health Major depressive disorder, recurrent, severe with psychotic symptomsCann abis use, unspecified, uncomplicate d 5 No Information GROUP PSYCHOTHERAPY [facility], [address] [place] [address], [address], [place] tel:[phone] [facility] Behavioral Health Major depressive disorder, recurrent, severe with psychotic symptoms 5 No Information GROUP PSYCHOTHERAPY [facility], [address] [place], [address], [place] tel:[phone] [facility] Behavioral Health Cannabis use, unspecified, uncomplicate dDepression 0 5 No Information [facility] And Family 30 Minutes [facility], [address] [place], [address], [place] tel:[phone] [facility] Behavioral Health Cannabis use, unspecified, uncomplicate dMajor depressive disorder, recurrent, severe with psychotic symptoms 0 5 No Information GROUP PSYCHOTHERAPY [facility], [address] [place], [address], [place] tel:[phone] [facility] Behavioral Health Cannabis use, unspecified, uncomplicate dMajor depressive disorder, recurrent, severe with psychotic symptoms 5 No Information [facility], [address] [place] [address], [address], [place] tel:[phone] [facility] Dental Encounter for dental exam and cleaning w/o abnormal findings 5 No Information OFFICE/OUTPATI E[place] VISIT, [facility] [place] [address] [place] [address], [id number], [place] tel:[phone] [facility] Adult Medicine Med Refill (chief complaint)la b results (chief complaint)Ab dominal pain (chief complaint)he alth maintenance (chief complaint) Left upper quadrant painAdminist rative encounter No Information GROUP PSYCHOTHERAPY [facility], [address] [place] [address], [address], [place] tel:[phone] [facility] Behavioral Health Cannabis use, unspecified, uncomplicate dMajor depressive disorder, recurrent, severe with psychotic symptoms No Information OFFICE/OUTPATI ENT VISIT, [facility] [place] [address] [place] [address], [address], [place] tel:[phone] [facility] Adult Medicine Oral/Ear pain (chief complaint) Body mass index (BMI) 25.0-25.9, adultOral pain 5 No Information OFFICE/OUTPATI ENT VISIT, [facility] [place] [address] [place] [address], [address], [place] tel:[phone] [facility] Adult Medicine abdominal pain (chief complaint)di arrhea (chief complaint) Body mass index (BMI) 25.0-25.9, adultHepatit is C antibody test positiveGast roesophageal reflux disease without esophagitisE ncounter for general adult medical examination with abnormal findings No Information OFFICE/OUTPATI ENT VISIT, [facility] [place] [address] [place] [address], [id number], [place] tel:[phone] [facility] Behavioral Health Major depressive disorder, recurrent, severe with psychotic symptomsCann abis use, unspecified, uncomplicate d No Information [facility]yTXPT And Family 30 Minutes [facility], [address] [place] [address], [address], [place] tel:[phone] [facility] Behavioral Health depression (chief complaint) Major depressive disorder, recurrent, severe with psychotic symptomsCann abis use, unspecified, uncomplicate d 5 No Information OFFICE/OUTPATI ENT VISIT, [facility] [place] [address] [place] [address], [address], [place] tel:[phone] [facility] Adult Medicine laboratory follow up (chief complaint) Hepatitis C antibody test positiveAcqu ired hypothyroidi smDepression Gastroesopha geal reflux disease without esophagitisR outine adult health maintenance Apr-0 5- 5 No Information OFFICE/OUTPATI ENT VISIT, [facility] [place] [address] [place] [address], [facility], tel:[phone] [facility] Behavioral Health DEPRESSION - PSYCHOTIC RECURRENT Sep-3 0- 5 No Information PsyTXPT And Family 30 Minutes [facility], [address] [place] [address], [facility], [place] tel:[phone] [facility] Behavioral Health depression (chief complaint) DEPRESSION - PSYCHOTIC RECURRENT Sep-2 5 No Information Psych Diag Eval W/Med Serv [facility], [address] [place] [address], [facility], tel:[phone] [facility] Behavioral Health DEPRESSION - PSYCHOTIC RECURRENT Sep-2 5 No Information OFFICE/OUTPATI ENT VISIT, [facility] [place] [address] [place] [address], [facility], tel:[phone] [facility] Adult Medicine Med Refill (chief complaint)De pression (chief complaint) Routine medical exam Mar-2 5 No Information Psych Dx Eval [facility], [address] [place] [address], [facility], [place] tel:[phone] [facility] Behavioral Health Initial Assessment (chief complaint) DEPRESSION - PSYCHOTIC RECURRENT Mar-1 5 No Information Family History Family Member Type Diagnosis Age At Onset No Information Immunizations Vaccine Date Status Comments Influenza, seasonal, injectable administered Source: New Immuniza tion Record Payers Payer name Insurance type Covered alliance party ID Authoriza tion(s) BEN Garcai [id number] BEN Garcia [id number] Social History Type Description Quantity Date Captured Comments Sex Female Smoking Status No Information Chief Complaint And Reason For Visit No Information Reason For Referral Reason For Referral No Information Plan Of Treatment Date Type Action Status Goal Dietary management education , guidance, and counseling completed Goal Dietary management education , guidance, and counseling completed Goal Dietary management education , guidance, and counseling completed Goal Dietary management education , guidance, and counseling completed Referral Ordered: Referrals: Hand surgery ordered Referral Ordered: Referrals: Gastroenterology. Consult ordered History Of Present Illness Encounter Date Complaint History Of Catarino mcfarland Illness Med Refills paperwork, hand pain, back pain The symptoms began on 07/24/2015 and generally lasts 3 Months. The symptoms are reported as being none. The symptoms occur none. The location is general. She returned to the Clinic to follow up on her DSS paperwork (It was submitted in June. She was given a copy today). She has had her appointment with GI. The colonoscopy could not be completed due to poor preparation. The endoscopy showed a hiatal hernia without ulcers or other concerns.She has continued low back pain with some burning into both thighs.She has continued swelling and pain in both hands. She has not received an appointment with hand surgery yet. Follow Up of hand pain Onset: on 07/03/2015. Duration: 2 Weeks. Severity level is moderate-severe. It occurs constantly and is stable. Location: bilateral hand. There is no radiation. The pain is aching. Context: there is no injury. The pain is aggravated by movement. The pain is relieved by rest. Associated symptoms include decreased mobility and swelling. Pertinent negatives include bruising, crepitus, numbness and tingling in the arms. Additional information: She reports no change in the swelling or pain in her hands. The medications do help.She was given the DSS paperwork at today's visit. ER F/U The symptoms beg an on 07/01/2015 and generally lasts 2 Days. The symptoms are reported as being moderate. The symptoms occur constantly. The location is abdomen. The symptoms are described as burning ache. She states the symptoms are acute and have improved. She returned to the Clinic today to follow up on a visit to the emergency department. She was seen there for abdominal pain that resolved with toradol. She was given prescriptions for Zofran ODT and tramadol. She has not filled those prescriptions because she wants to [facility] at [facility]. bilateral hand pain (comments) b ut they have not been very supportive. It was explained to her that, on previous visits, she had not mentioned any difficulties with her hands. Exams at those times did not indicate any swelling or grasping difficulties. She was asked to return to drop off new DSS paperwork for completion in light of this new information. bilateral hand pain Onset: year ago. Duration: 1 Week. Severity level is incapacitating. It occurs intermittently and is fluctuating. Location: bilateral hand. There is no radiation. The pain is aching and sharp. Context: there is no injury. The pain is aggravated by movement and grasping. The pain is relieved by OTC medicines (ibuprofen). Associated symptoms include decreased mobility, joint tenderness, numbness, swelling, tingling in the arms and weakness. Pertinent negatives include bruising, crepitus, difficulty initiating sleep, joint instability, popping and spasms. Additional information: She was upset that her SSI/DSS paperwork indicated that she was cabale of working. She reports swelling and pain in her hands with weakness that prevents her from working. She has difficulty completely daily tasks of living. She has also tried to have Behavioral Health help her with her depression,. depression This is a follow up visit. There is improvement of initial symptoms. The patient reports functioning as not difficult at all. The Global Assessment of Functioning Scale (GAF) = 52. The patient does not present with anxious/fearful thoughts, compulsive thoughts, decreased need for sleep, depressed mood, difficulty concentrating, difficulty falling asleep, difficulty staying asleep, diminished interest or pleasure, easily startled, excessive worry, fatigue, feelings of guilt, feelings of invulnerability, increased energy, hallucinations,decreased libido, increased libido, loss of appetite, paranoia, poor judgment, racing thoughts, restlessness or thoughts of or suicide. The patient's risk factors include relationship problems and unemployment. The patient's risk factors exclude history of depression. The depression is aggravated by conflict or stress. The patient's relieving factors are a good response to medication. lab results We reviewed her laboratory results in detail. Her HCV PCR was not detectable. No further follow up is needed at this time. Med Refill She requested a refill of her migraine medicatins, Fioricet. health maintenance Allergies: re viewed and updatedMedications: reviewed and updatedPast Medical History:Surgical History:Family History:Social History:Behavioral Health: (05/18/15) PHQ-9 ()Sexual Health:Dental:Optometry:Podiatry:Diet: Exercise:Women's Health:Mammogram:Immunizations: Flu (2015) H.Flu (n/a) Hep A () Hep B (not immune) HPV (n/a) Meningitis (n/a) MMR () PN13 (n/a) PN23 (n/a) Tetanus () Varicella (n/a) Zoster (n/a)Screening: A1c () Anal CA (n/a) Chol tot/HDL/LDL/TG (223/43/135/226) Colonoscopy () EKG (Mar 2015) Fall risk (n/a) Labs (Apr 2015) Osteoporosis (n/a) STD (negative) TB () TSH (4.53) Vit D (37) Abdominal pain Onset: 2 Months. The problem is severe. Pain scale: 0/10. The problem has not changed. The symptoms are constant. The location is left upper quadrant. The reports radiation to the none. The quality of the pain is dull. These symptoms occur after meals. These symptoms do not occur after bowel movement, with menses, on urination, with recent antibiotic use and after recent foreign travel. Aggravating factors include anxiety and constipation. Symptoms are not aggravated by alcohol, bowel movement or movement. Symptoms are not relieved by analgesics, antacids, bowel movement, change in position, H2 blockers, proton pump inhibitors or rest. Pertinent negatives include back pain, bloating, blood in stool, change in appetite, constipation, diarrhea, dizziness, fever, flatulence, heartburn, hematuria, jaundice, lightheadedness, nausea, rash, vaginal bleeding, vaginal discharge and vomiting. Oral/Ear pain Patient presents to the office for evaluation of oral and ear pain. Pain is located on the right hand side and has been present for 9 hours. Patient woke up in the middle of the night with right-sided pain and inability to swallow without pain. She states that her daughter has been coughing at home. Rapid strep in office was negative. Patient has not been to the dentist in many years. abdominal pain Pain scale: 10/1 0. Associated symptoms include bloating, heartburn and nausea. Pertinent negatives include blood in stool, change in appetite, fever, flatulence, rash, vomiting and weight loss. diarrhea The patient desc ribes it as loose and soft but not watery.. Symptom is aggravated by eating.. Associated symptoms include abdominal pain, anorexia, bloating, cramping (abdominal), distention (abdominal) and nausea. Pertinent negatives include blood in stool, change in appetite, decreased urine output, fecal incontinence, fever, flatulence, joint pain, rash, tenesmus, vomiting and weight loss. depression This is a follow up visit. There is improvement of initial symptoms. The patient reports functioning as not difficult at all. The Global Assessment of Functioning Scale (GAF) = 49. The patient presents with depressed mood, difficulty staying asleep, diminished interest or pleasure, hallucinations (visual) and loss of appetite but denies anxious/fearful thoughts, compulsive thoughts, decreased need for sleep, difficulty concentrating, difficulty falling asleep, easily startled, excessive worry, fatigue, feelings of guilt, feelings of invulnerability, increased energy,decreased libido, increased libido, paranoia, poor judgment, racing thoughts, restlessness or thoughts of or suicide. The patient's risk factors include drug abuse, family history of depression, family history of bipolar disorder, history of depression and unemployment. The depression is aggravated by conflict or stress. The patient's relieving factors are a poor response to medication. laboratory follow up The symptom s began on 04/18/2015 and generally lasts 2 Weeks. The symptoms are reported as being severe. The symptoms occur constantly. The location is general. She returned to the Clinic to check up on her laboratory results. We discussed the elevated hepatitis C antibody and the need for a follow-up test. She was given information about follow up with a specialist depending on the results of the new blood test.She reports continued depression. She does not feel the medications are helping her. She reports difficulty sleeping, loss of appetite, weight loss, nausea, abdominal pain, and weakness. She feels she has lost a lot of weight (according to the records here, she has lost 1 pound in the past 12 days). Her TSH was slighly elevated, so her levothyroxine was increased. Her omeprazole dose was also increased to assist with the abdominal pain. When the records from Behavioral Health were reviewed, they indicate she has been getting better. Our Behavioral Health integrative specialist was consulted, but Ms. Bryant left prior to meeting with her. depression This is a follow up visit. There is improvement of initial symptoms. The patient reports functioning as not difficult at all. The Global Assessment of Functioning Scale (GAF) = 49. The patient presents with loss of appetite but denies anxious/fearful thoughts, compulsive thoughts, decreased need for sleep, depressed mood, difficulty concentrating, difficulty falling asleep, difficulty staying asleep, diminished interest or pleasure, easily startled, excessive worry, fatigue, feelings of guilt, feelings of invulnerability, increased energy, hallucinations,decreased libido, increased libido, paranoia, poor judgment, racing thoughts, restlessness or thoughts of or suicide. The patient's risk factors include history of depression and unemployment. The depression is aggravated by conflict or stress. The patient's relieving factors are a good response to medication. Depression This is a follow up visit. There is continuation of initial symptoms. There is no improvement of initial symptoms. The patient reports functioning as extremely difficult. The Global Assessment of Functioning Scale (GAF) = 49. The patient presents with depressed mood, difficulty concentrating, difficulty falling asleep, diminished interest or pleasure, fatigue, feelings of guilt, loss of appetite, restlessness and thoughts of or suicide. The Depression is aggravated by lack of medication. The patient's relieving factors are psychiatry visits. The patient denies any chronic pain, headache, nausea and vomiting. Additional information: She has her next appointment with her mental health providers on Apr 24. She was counseled to return here or go to the emergency department immediately if she begins having thoughts of harming herself or anyone else. She was able to contract for safety. Med Refill The symptoms beg an 2 weeks ago and generally lasts 2 Weeks. The symptoms are reported as being severe. The symptoms occur daily. The location is general. She states she needs refills on her medications. She has come here from [place] and was stable on her medications. She has run out of them now. Initial Assessment This is an in itial visit. The patient presents with depressed mood, difficulty falling asleep, difficulty staying asleep and diminished interest or pleasure but denies anxious/fearful thoughts, compulsive thoughts, decreased need for sleep, difficulty concentrating, easily startled, excessive worry, fatigue, feelings of guilt, feelings of invulnerability, increased energy, hallucinations,decreased libido, increased libido, loss of appetite, paranoia, poor judgment, racing thoughts, restlessness or thoughts of or suicide. The patient's risk factors include alcoholism, childhood abuse or neglect, family history of depression, financial worries, history of depression, history of suicidal attempts and unemployment. The patient's risk factors exclude chronic illness, of a friend or loved one, drug abuse, family history of anxiety, family history of bipolar disorder, medications, recent childbirth, relationship problems, social isolation and victim of abuse or violence. The Initial Assessment is aggravated by conflict or stress and ADJUSTING TO CT but not with alcohol use, drug use, lack of sleep, menstruation, social interactions, traumatic memories or winter season. Interventions the patient has tried have not provided any relief. Functional Status Date Functional Assessmen t No Information Instructions Date Instruction Additional Infor rakesh visit in [place] Related to Ende rich hypothyroid cretinism ??? Tiene carlos anjana c on la especialista de los tima a [facility] en el . ??? You have an appointment with the hand specialist at [facility] on November 11. Related to Carpal tunnel syndrome, bilateral ??? [place] todos watson m edicamentos seg???n las indicaciones. Llame o venga a la Cl???jensen si tiene alg???n efecto secundario o problemas con watson medicamentos.??? Cambio los medicamentos para dolor de tramadol y nabumetone en Percocet y diclofenac. ??? Take all your medications as prescribed. Call or come to the Clinic if you are having any side effects or problems with your medications.??? I will change the medications for pain from tramadol and nabumetone to Percocet and diclofenac. Related to Routine adult health maintenance ??? Ir a la especial ista del estomogo quando tiene la anjana (en kyle). ??? Go to the stomach specialist when you have the appointment (in October). Related to Hiatal hernia ??? Carlos radiograf??? a se camacho ordenado en el [facility]. Usted no necesita carlos anjana. Por favor, t???mese el papel con usted a milla de los lugares indicados.??? Volver a la Cl???jensen si tiene alg???n problema o inquietud??? Regresar a la Cl???jensen en 3 meses por re-chequar. Related to Bilateral hand pain ??? [place] todos watson m edicamentos seg???n las indicaciones. Llame o venga a la Cl???jensen si tiene alg???n efecto secundario o problemas con watson medicamentos. Related to Medication refill Weight monitoring Related to Bod y mass index (BMI) 27.0-27.9, adult Dietary management e ducation, guidance, and counseling Related to Body mass index (BMI) 27.0-27.9, adult ??? Las recetas fuer on escritas para usted hoy. Ellas fueron enviados electr???nicamente a [facility] ([facility] [place]). Related to Epigastric pain ??? Calor h???medo 2 0-30 minutos, estirarse suavemente, hielo 20-30 minutos - Repetir 4-5 veces al d???a.??? Volver a la Cl???jensen si tiene alg???n problema o inquietud: mas dolor; problemas movarse; fiebre, vomita; etc.??? Regresar a la Cl???jensen el 29 diciembre a las 4:45 pm Related to Neck pain Weight monitoring Related to Bod y mass index (BMI) 28.0-28.9, adult Dietary management e ducation, guidance, and counseling Related to Body mass index (BMI) 28.0-28.9, adult ??? Prescriptions we re written for you today. They were sent electronically to your pharmacy ([facility] [place]).Bring a new DSS form to the Clinic, and I will fill it out again to include the hand difficulties.??? Return to the Clinic if you have any problems or concerns: worse pain, increased swelling, more trouble moving, etc.??? Return to the Clinic in 1 month to check on your hands. Related to Swelling of both hands Related to Canna bis use, unspecified, uncomplicated Related to Major depressive disorder, recurrent, severe with psychotic symptoms Related to Canna bis use, unspecified, uncomplicated Related to Major depressive disorder, recurrent, severe with psychotic symptoms ??? Las pruebas de s angre son normales. No necisita cambiar los medicamentos.??? Volver a la Cl???jensen si tiene alg???n problema o inquietud: mas dolor, vomita, fiebre, etc.??? Regresar a la Cl???jensen en 1 mes Related to Administrative encounter ??? Las recetas fuer on escritas para usted hoy. Ellas fueron enviados electr???nicamente a [facility] ([facility] [place]). Related to Left upper quadrant pain 1. Use clindamycin e very 8 hours for 7 days2. Make appointment with [facility] dental dept Related to Oral pain Weight monitoring Related to Bod y mass index (BMI) 25.0-25.9, adult Dietary management e ducation, guidance, and counseling Related to Body mass index (BMI) 25.0-25.9, adult COnt medication labs ordered f/u in 2-3 weeks. ER with any worsening pain. CHecking for H Pylori Although since pt is on ppi it may sckew the results. Pt agrees with POC. Related to Encounter for general adult medical examination with abnormal findings Work up ordered Related to Hepat itis C antibody test positive Cont. Medication f/u with PCP in 2-3 weeks. Related to Gastroesophageal reflux disease without esophagitis Related to Major depressive disorder, recurrent, severe with psychotic symptoms Related to Canna bis use, unspecified, uncomplicated Weight monitoring Related to Bod y mass index (BMI) 25.0-25.9, adult Dietary management e ducation, guidance, and counseling Related to Body mass index (BMI) 25.0-25.9, adult ??? Volver a la Cl?? ?jensen si tiene alg???n problema o inquietud: mas dolor, mas vomita, mas depresion, etc.??? Regresar a la Cl???jensen en 1 mes para carlos anjana de cabacerra. Related to Routine adult health maintenance ??? Las recetas fuer on escritas para usted hoy. Ellas fueron enviados electr???nicamente a [facility] ([facility] [place]).??? Tienes dolor en el estomago. Quiero que claudia un poco mas del medicamento para el estomago por ayudar con el dolor. Related to Gastroesophageal reflux disease without esophagitis ??? Las recetas fuer on escritas para usted hoy. Ellas fueron enviados electr???nicamente a [facility] ([facility] [place]).??? El Synthroid (levothyroxine) es un poco bajo. Quiero que claudia un poco mas de shaheed medicamento (75 mcg ahora). Related to Acquired hypothyroidism ??? Los estudios de laboratorio se les orden??? hoy. Por favor, ir al laboratorio para skip sacado la tara. Related to Hepatitis C antibody test positive Related to DEPRE SSION - PSYCHOTIC RECURRENT Related to DEPRE SSION - PSYCHOTIC RECURRENT ??? pruebas de sangr e (no come 8 horas antes de venir al laboratorio)??? Regressa a la Clinica en 1-2 semanas por carlos anjana de cabacerra y por discutar los resultados??? [place] los medicamentos Related to Routine medical exam Assessments Type Assessment Date No Information Patient Care Teams Name Effective Dates (start - stop) Status Members No Information
== END 2024-07-13 15:00 | disposition home or self-care (01) ==
LOC: HO.MAMMO 14:59
PROVIDERS: PCP Family Medicine; Visit Provider Family Medicine
DX: Z12.31 Encounter for screening mammogram for malignant neoplasm of breast (principal)
CPT/HCPCS: 77063; 77067

== ENCOUNTER → 2024-07-13 15:00 | Outpatient (BNV) | payer MEDICAID, SELFPAY | PROVIDERS: PCP Family Medicine; Visit Provider Internal Medicine | DX: Z12.31 Encounter for screening mammogram for malignant neoplasm of breast (principal) | CPT/HCPCS: 77063; 77067 ==